=== PATIENT | female | born 1935 | race Caucasian/White ===

== ENCOUNTER 2023-12-18 16:33 | Emergency (ER) | payer MEDICARE, BC, SELFPAY ==
--- NOTE | ~2023-12-18 | XR_ITS ---
XR chest 1V DATE: 12/18/2023 17:44 INDICATION: Fall. Right shoulder pain TECHNIQUE: Supine AP chest COMPARISON: None FINDINGS: Cardiomegaly. Aortic calcification. Large hiatal hernia. No hilar or mediastinal enlargement is evident. No pulmonary infiltrate or consolidation, pleural effusion or pulmonary vascular congestion or pneumo thorax is detected. Osteopenia. IMPRESSION: Cardiomegaly, aortic atherosclerosis Large hiatal hernia No active pulmonary disease Osteopenia Reviewed, dictated and finalized at location [facility].
--- NOTE | ~2023-12-18 | XR_ITS ---
XR shoulder RT min 2V DATE: 12/18/2023 17:44 INDICATION: Ground-level fall, right shoulder injury, pain TECHNIQUE: 4 views COMPARISON: None FINDINGS: There is diffuse osteopenia. No fracture, dislocation, periosteal reaction or bone destruction is detected. Right rotator cuff atr ophy is suggested. Moderately prominent cervical spondylosis. Degenerative spurring of the thoracic spine. Aortic arch calcification. IMPRESSION: Osteopenia Suspected rotator cuff atrophy No fracture or dislocation of right shoulder Reviewed, dictated and finalized at location [facility].
--- NOTE | ~2023-12-18 | XR_ITS ---
XR humerus RT DATE: 12/18/2023 18:36 INDICATION: Right arm pain TECHNIQUE: AP and lateral views COMPARISON: None FINDINGS: There is osteopenia. Rotator cuff atrophy. Mild degenerative spurring of the right acromioclavicular joint. Normal alignme nt at the right shoulder and elbow joints. No evidence of elbow joint effusion. No fracture, dislocation, periosteal reaction or bone destruction of the right humerus is detected. IMPRESSION: Right rotator cuff atrophy Osteopenia Mild degenerative change of the right acromioclavicular joint Reviewed, dictated and finalized at location [facility].
--- NOTE | ~2023-12-18 | CT_ITS ---
EXAMINATION: CT brain wo con DATE: 12/18/2023 18:29 INDICATION: Head trauma TECHNIQUE: Computed tomography (CT) of the head was performed without intravenous contrast. The mA wa s adjusted according to patient size. Iterative reconstruction technique was employed. Exam dose: 60 5.33 mGy-cm total exam DLP. COMPARISON: 09/15/2012 CT brain FINDINGS: Bilateral vertebral artery, basilar artery and prominent bilateral carotid siphon internal carotid artery calcifications. 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 Moderate cerebral and cerebellar volume loss consistent with patient chronological age. No intracranial mass lesion or hemorrhage, midline shift or mass effect. No subdural or epidural anca winston is detected. The paranasal sinuses and mastoid air cells are well-developed and aerated. No fracture or bone destruction of the cranial vault. IMPRESSION: No skull fracture or acute intracranial finding Reviewed, dictated and finalized at [facility]. Reviewed, dictated and finalized at location A.
[2023-12-18 16:35] VITALS: BP 151/95; PULSE 60; RESP 20; TEMP 36.4; O2SAT 98
--- NOTE | 2023-12-18 18:00 | WC.ED.TRAUMA ---
HPI - Trauma General Chief Complaint: Extremity Injury, Upper Stated Complaint: R shoulder injury Time Seen by Provider: 12/18/23 17:35 Source: patient Mode of arrival: ambulatory Limitations: no limitations History of Present Illness HPI narrative: This is an 88-year-old female, with history coronary artery disease on Plavix, who presents emergency department after a ground level fall. Patient states she was climbing stairs, when she tripped striking the right side of her face and right shoulder. She complains of 6/10 dull shoulder pain. She denies loss of consciousness, weakness or numbness. She has no other complaints at this time. Related Data Allergies Allergy/AdvReac Type Severity Reaction Status Date / Time No Known Allergies Allergy Verified 12/18/23 16:39 Review of Systems Review of Systems: All systems reviewed & are unremarkable except as noted in HPI and below PMFSH Past Medical History Medical History CAD (coronary artery disease) Surgical History Surgical History No significant past surgical history Social History Social History Smoking status: Never smoker Alcohol intake: never Substance use: never Exam Narrative: GENERAL: Well-developed, well-nourished, and in no acute distress. HEAD: Normocephalic, atraumatic. EYES: PERRLA and EOMI. NECK: Supple. No midline spine tenderness to palpation, no step-off or crepitus. Range of motion of the neck intact CHEST: Clear to auscultation. No respiratory distress. No wheezes rales or rhonchi HEART: Regular rate and rhythm. No murmur heard. Normal peripheral pulses. ABDOMEN: Soft, nontender, nondistended, normal active bowel sounds. EXTREMITIES: No visible deformity. Tender to palpation over the right anterior shoulder without step-off or crepitus. Mild tenderness to palpation over the proximal right arm. Range of motion of the right shoulder limited by pain. Normal range of motion in all other extremities. No edema. SKIN: Warm, dry, no rash. NEURO: Alert and oriented x3. No focal deficit. Moving all 4 limbs spontaneously PSYCH: Normal mood and affect. Course Course Emergency Course: 19:02 - CT head negative for intracranial hemorrhage or skull fracture. X-rays of the shoulder and humerus on the right negative for fracture or dislocation. X-ray of the shoulder shows changes consistent with rotator cuff arthropathy. Chest x-ray unremarkable. I suspect a contusion of the right shoulder. Will discharge with pain medications and recommendations for RICE therapy. I discussed the findings and recommendations with the patient and her daughter. Discussed return and emergency precautions including signs/symptoms of septic arthritis and neurovascular compromise. The patient and her daughter voiced understanding and agreement with the plan. All questions answered to their satisfaction. Vital Signs Vital signs: Vital Signs Temperature 97.5 F L 12/18/23 16:35 Pulse Rate 60 12/18/23 16:35 Respiratory Rate 20 12/18/23 16:35 Blood Pressure 151/95 H 12/18/23 16:35 Pulse Oximetry 98 12/18/23 16:35 Oxygen Delivery Room Air 12/18/23 16:35 Temperature 97.5 F L 12/18/23 16:35 Pulse Rate 60 12/18/23 16:35 Respiratory Rate 20 12/18/23 16:35 Blood Pressure 151/95 H 12/18/23 16:35 Pulse Oximetry 98 12/18/23 16:35 Oxygen Delivery Room Air 12/18/23 16:35 MDM - Trauma MDM Narrative Medical decision making narrative: Plan: Imaging, pain control, reassess Differential Diagnosis Differential diagnosis: Likely fracture of pelvis (Shoulder dislocation, shoulder separation, humerus fracture, concussion, skull fracture, intracranial hemorrhage, other) Discharge Plan Discharge Clinical Impression: Contusion of left shoulder Qualifiers: Encounter type: initial encounter Qualified Code(s): S40.012A - Contusion of left shoulder, initial encounter Concussion Qualifiers: Encounter type: initial encounter Loss of consciousness presence/duration: without LOC Qualified Code(s): S06.0X0A - Concussion without loss of consciousness, initial encounter Patient Disposition: Home, Self-Care Condition: Stable Instructions: Antibiotic Form, Contusion in Adults (ED), Shoulder Pain (ED) Additional Instructions: You were seen in the emergency department. X-rays of the shoulder normal not concerning for fracture or dislocation. CT scan of the head was not concerning for bleeding in the brain or skull fracture. I recommend a sling and Tylenol for pain. I recommend gentle shoulder exercises to prevent a frozen shoulder. I recommend following up with your primary care doctor. If you develop persistent vomiting, weakness/numbness, loss of consciousness, the arm appears blue/cold or if you have other emergent concerns for life, limb, or eyesight, return to the emergency department. Patient Language: Green[place]ic Prescriptions: New cyclobenzaprine 5 mg tablet 5 mg PO HS PRN (Reason: muscle spasm) Qty: 5 0RF lidocaine 5 % adhesive patch,medicated 1 patch topical DAILY Qty: 30 0RF Rx Instructions: leave on most painful area for up to 12 hrs Follow-up/Referrals: Romero,Ulysses Greenberg MD [Primary Care Provider] - 2 Weeks Time of Disposition: 19:06
[2023-12-18 18:08] VITALS: BP 156/99; PULSE 51; RESP 16; O2SAT 98
== END 2023-12-18 19:32 | disposition home or self-care (01) ==
PROVIDERS: Emergency Provider Preventive Medicine Aerospace Medicine; PCP Internal Medicine
DX: S40.011A Contusion of right shoulder, initial encounter (principal); W18.30XA Fall on same level, unspecified, initial encounter; I25.10 Atherosclerotic heart disease of native coronary artery without angina pectoris; Z79.02 Long term (current) use of antithrombotics/antiplatelets
CPT/HCPCS: 70450; 71045; 73030; 73060; 99284; A4565